=== PATIENT | female | born 1995 | race Hispanic/Latino ===

== ENCOUNTER 2018-07-22 22:21 | Emergency (ER) | payer SELFPAY ==
[~2018-07-22] VITALS: Ht 157.5 cm; Wt 57.6 kg
== END 2018-07-22 22:31 | disposition home or self-care (01) ==
LOC: ER 22:21
DX: F11.23 Opioid dependence with withdrawal (principal); F17.210 Nicotine dependence, cigarettes, uncomplicated
CPT/HCPCS: 99282